=== PATIENT | female | born 1995 | race Caucasian/White ===

== ENCOUNTER 2019-07-15 14:46 | Emergency (ER) | payer SELFPAY ==
--- NOTE | 2019-07-15 15:08 | ED ---
Psychiatric Complaint - HPI Summary HPI Summary: This pt is a 23 y/o female presenting to [facility] with [employer] for SI. Pt reports states she has hx of depression (for the past 4 years) and takes medications for it. She notes she has been having SI thoughts lately but this morning it became worse. Pt reports SI plan to overdose on her medications but states "but I would never act on it." She notes she has been sleeping more than usual and has decreased appetite. Denies any other PMHx. She admits to marijuana and occasional alcohol use. Denies tobacco use. - History Of Current Complaint Chief Complaint: EDSuicidal Time Seen by Provider: 07/15/19 14:58 Hx Obtained From: Patient Onset/Duration: Lasting Days, Still Present, Worse Since - today Timing: Days Severity Currently: Moderate Character: Depressed Aggravating Factor(s): Nothing Alleviating Factor(s): Nothing Associated Signs And Symptoms: Positive: Appetite Change Related History: Positive For: Prior Psychiatric Issues Has Suicidal: Reports: Thoughts, With A Plan Has Homicidal: Denies: Thoughts, With A Plan - Allergies/Home Medications Allergies/Adverse Reactions: Allergies Allergy/AdvReac Type Severity Reaction Status Date / Time No Known Allergies Allergy Verified 07/15/19 15:37 Home Medications: Home Medications ALPRAZolam [Xanax] 0.25 mg PO TID 07/15/19 [History Confirmed 07/15/19] ARIPiprazole [Abilify] 5 mg PO DAILY 07/15/19 [History Confirmed 07/15/19] Effexor TAB (NF) 225 mg PO DAILY 07/15/19 [History Confirmed 07/15/19] [place] Carbonate [[place] Carbonate 300 mg cap] 300 mg PO BID 07/15/19 [ History Confirmed 07/15/19] PMH/Surg Hx/FS Hx/Imm Hx Endocrine/Hematology History: Denies: Hx Diabetes Cardiovascular History: Denies: Hx Hypertension Psychiatric History: Reports: Hx Depression - Surgical History Surgical History: Yes Surgery Procedure, Year, and Place: [place] teeth Infectious Disease History: No Infectious Disease History: Denies: Traveled Outside the [place] in Last 30 Days - Family History Known Family History: Positive: Diabetes - Uncle Family History: Pancreatic cancer. Mom with anxiety and depression. - Social History Alcohol Use: Occasionally Substance Use Type: Reports: Marijuana Smoking Status (MU): Never Smoked Tobacco Review of Systems Constitutional: Other - POSITIVE: decreased appetite Negative: Fever Cardiovascular: Negative Respiratory: Negative Gastrointestinal: Negative Psychological: Other - POSITIVE: SI Positive: Depressed. Negative: Other - NEGATIVE: HI All Other Systems Reviewed And Are Negative: Yes Physical Exam - Summary Physical Exam Summary: VITAL SIGNS: Reviewed. GENERAL: Patient is a well-developed and nourished female. Patient is not in any acute respiratory distress. HEAD AND FACE: No signs of trauma. No ecchymosis, hematomas or skull depressions. No sinus tenderness. EYES: PERRLA, EOMI x 2, No injected conjunctiva, no nystagmus. EARS: Hearing grossly intact. Ear canals and tympanic membranes are within normal limits. MOUTH: Oropharynx within normal limits. NECK: Supple, trachea is midline, no adenopathy, no JVD, no carotid bruit, no c- spine tenderness, neck with full ROM. CHEST: Symmetric, no tenderness at palpation LUNGS: Clear to auscultation bilaterally. No wheezing or crackles. CVS: Regular rate and rhythm, S1 and S2 present, no murmurs or gallops appreciated. ABDOMEN: Soft, non-tender. No signs of distention. No rebound no guarding, and no masses palpated. Bowel sounds are normal. EXTREMITIES: FROM in all major joints, no edema, no cyanosis or clubbing. NEURO: Alert and oriented x 3. No acute neurological deficits. Speech is normal and follows commands. SKIN: Dry and warm Triage Information Reviewed: Yes Vital Signs On Initial Exam: Initial Vitals Temp Pulse Resp BP Pulse Ox 99.6 F 78 16 116/74 97 07/15/19 14:54 07/15/19 14:54 07/15/19 14:54 07/15/19 14:54 07/15/19 14:54 Vital Signs Reviewed: Yes Diagnostics - Vital Signs Vital Signs Temp Pulse Resp BP Pulse Ox 07/15/19 14:54 99.6 F 78 16 116/74 97 - Laboratory Result Diagrams: 07/15/19 15:27 07/15/19 15:27 Lab Statement: Any lab studies that have been ordered have been reviewed, and results considered in the medical decision making process. Course/Dx - Course Assessment/Plan: Blood work w/o a significant abnormality. She is medically cleared. She is awaiting a MHE. Patient is hemodynamically stable and A+O x 3. Pt had a mental health evaluation and her case was reviewed by Dr. Pinon, psychiatrist. Dr. Pinon has cleared the pt for discharge with dx unspecified depression. Pt will be discharged home with her father. - Differential Dx/Clinical Impression Differential Diagnosis/HQI/PQRI: Positive: Depression Provider Diagnosis: Depression Discharge ED - Sign-Out/Discharge Documenting (check all that apply): Patient Departure - Discharge home Patient Received Moderate/Deep Sedation with Procedure: No - Discharge Plan Condition: Stable Disposition: HOME Patient Education Materials: Depression (DC), Suicide Prevention (ED) Referrals: [facility] [Z.BUSINESS, APPLICATION, OTHER] - (Please follow up as soon as possible) - Billing Disposition and Condition Condition: STABLE Disposition: Home - Attestation Statements Document Initiated by Samara: Yes Documenting Scribe: Cindi Guo Provider For Whom Roxanne is Documenting (Include Credential): Paul Sheppard MD Scribe Attestation: ICindi, scribed for Paul Sheppard MD on 07/15/19 at 2141. Scribe Documentation Reviewed: Yes Provider Attestation: The documentation as recorded by the Cindi maciel accurately reflects the service I personally performed and the decisions made by me, Paul Sheppard MD Status of Scribe Document: Viewed
[2019-07-15 15:31] LABS: Urine Appearance Cloudy; Urine Bacteria Absent (Absent); Urine Bilirubin Negative (Negative); Urine Blood Negative (Negative); Urine Color Yellow; Urine Glucose Negative (Negative); Urine Ketones Negative (Negative); Urine Nitrite Negative (Negative); Urine Protein 2+(100 mg/dL) (Negative); Urine Red Blood Cell Trace(0-2/hpf) (Absent); Urine Specific Gravity 1.015 (1.010-1.030); Urine Squamous Epithelial Cell Present (Absent); Urine Urobilinogen Negative (Negative); Urine White Blood Cell Trace(0-5/hpf) (Absent)
[2019-07-15 15:34] LABS: ABS Basophils 0.1 10^3/ul (0-0.2); ABS Eosinophils 0.1 10^3/ul (0-0.6); ABS Lymphocytes 2.3 10^3/ul (1.0-4.8); ABS Monocytes 0.7 10^3/ul (0-0.8); ABS Neutrophils 4.6 10^3/ul (1.5-7.7); Eosinophil % 1.2 %; Hematocrit 44 % (35-47); Hemoglobin 14.9 g/dL (12.0-16.0); Lymphocyte % 29.6 %; Mean Corpuscular HGB Conc 34 g/dL (31-36); Mean Corpuscular Hemoglobin 29 pg (27-31); Mean Corpuscular Volume 86 fL (80-97); Mean Platelet Volume 7.3 fL (7.4-10.4); Nucleated Red Blood Cells % 0.2; Platelet Count 356 10^3/uL (150-450); Red Cell Distribution Width 13 % (10-15); White Blood Count 7.7 10^3/uL (3.5-10.8)
[2019-07-15 16:22] LABS: Urine Benzodiazepine Screen Presumptive Positive (None Detect); Urine Opiates Screen None Detected (None Detect)
[2019-07-15 16:26] LABS: ALT 12 U/L (7-52); AST 18 U/L (13-39); Albumin 4.5 g/dL (3.2-5.2); Albumin/Globulin Ratio 1.5 (1-3); Alkaline Phosphatase 70 U/L (34-104); Anion Gap 9 mmol/L (2-11); BUN/Creatinine Ratio 17.6 (8-20); Blood Urea Nitrogen 13 mg/dL (6-24); CO2 Carbon Dioxide 23 mmol/L (22-32); Calcium 9.3 mg/dL (8.6-10.3); Chloride 104 mmol/L (101-111); EGFR African American 119.9 (>60); EGFR Non-African American 99.1 (>60); Glucose 96 mg/dL (70-100); Potassium 4.2 mmol/L (3.5-5.0); Sodium 136 mmol/L (135-145); Total Protein 7.5 g/dL (6.4-8.9)
[2019-07-15 16:44] LABS: Acetaminophen < 15 mcg/mL; Alcohol < 10 mg/dL (<10); Lithium 0.13 mmol/L (0.6-1.2); Salicylate < 2.50 mg/dL (<30)
[2019-07-15 19:26] VITALS: BP 123/72
== END 2019-07-15 19:23 | disposition home or self-care (01) ==
LOC: ED 14:46
DX: F32.9 Major depressive disorder, single episode, unspecified (principal); Z79.899 Other long term (current) drug therapy
CPT/HCPCS: 36415; 80053; 80178; 80307; 80320; 80329; 81003; 81015; 84443; 85025; 87086; 99285; G0480